=== PATIENT | female | born 1990 | race Caucasian/White ===

== ENCOUNTER 2016-04-05 10:11 | Emergency (ER) | payer MEDICARE, MEDICAID ==
[2016-04-05 10:34] VITALS: BP 113/72; TEMP 98; BMI 23.1
[2016-04-05] MEDS ORDERED: KETOROLAC TROMETHAMINE 10 MG TAB PO ONE (12:03)
--- NOTE | 2016-04-05 12:06 | EDPRACDOC ---
- General Information Chief Complaint: Rib Pain Stated Complaint: CHEST WALL PAIN Time Seen by Provider: 04/05/16 12:03 Information Source: Patient Mode of Arrival: Car Home Medications: Home Medications Azithromycin [Zithromax] 0 mg PO DAILY #6 tablet 04/05/16 Meloxicam 15 mg PO DAILY #20 tab 04/05/16 Oxycodone Immediate Release [Oxycodone Immediate Release (OxyIR)] 5 mg PO Q4H PRN #7 tab 04/05/16 Prednisone [Sterapred Ds] 10 mg PO DIR #21 pack 04/05/16 Allergies/Adverse Reactions: Allergies Allergy/AdvReac Type Severity Reaction Status Date / Time acetaminophen [From Tylenol] Allergy Rash-Genera Verified 04/05/16 10:31 lized - History of Present Illness Onset: 3 days HPI: PT STATES SHE FELL 3 DAYS AGO AND HAS BRUISE TO RT ARM AND C/O LEFT LATERAL CHESTWALL PAIN THAT IS WORSE IWHT TAKING BREATH MOVEMENT AND COUGHING. NO FEVERS OR CHILLS NO SOB AT THIS TIME. Chest Wall Injury Location: Reports: Lateral (LT) Context: Reports: Fall Tetanus Up To Date?: No Pain Quality: Reports: Sharp, Aching Pain Severity: Reports: Mild, Moderate Pain Worsens With: Reports: Coughing, Breathing, Movement, Position Shortness of Breath: None Associated Signs and Symptoms: Reports: None ED Past Medical History - History Reviewed Yes Nurses notes reviewed and agree except as marked Travel Outside of [place] in the Last 3 Months?: No No Past Medical History: Yes Patient has no past medical history - Social Medical History Smoking Status: Heavy tobacco smoker (5 or more cigarettes/day or daily pipe/ cigar) ETOH: None Substance Abuse: None Lives With: Other Lives In: Home EDM Review of Systems - Review of Systems ROS Negative Except as Marked: Yes All systems reviewed and were negative except as marked Constitutional: No Symptoms Reported. negative: Fever, Chills, Weakness, Fatigue, Loss of Appetite Eyes: No Symptoms Reported. negative: Redness, Blurred Vision, Double Vision, Discharge, Pain, Light Sensitive, Photophobia Ears: No Symptoms Reported. negative: Pain, Hearing Loss, Drainage, Ear Pulling Throat: No Symptoms Reported. negative: Pain, Swelling Nose: No Symptoms Reported. negative: Congestion, Bleeding, Discharge, Injection, Swelling, Deformity, Ecchymosis, Tender, Abrasion, Laceration Mouth: No Symptoms Reported. negative: Pain, Drooling Respiratory: Cough. negative: Barky Cough, Brassy Cough, Hemoptysis, Shortness of Breath, Wheezing Cardiovascular: No Symptoms Reported. negative: Chest Pain, Cyanosis, Edema, Orthopnea, Palpitations, PND, Syncope, Skin Mottling Gastrointestinal: No Symptoms Reported. negative: Pain, Constipation, Nausea, Vomiting, Diarrhea, Melena, Formula Intolerance Genitourinary: No Symptoms Reported. negative: Dysuria, Hematuria, Frequency, Discharge, Bleeding, Testicular Pain, Neurological: No Symptoms Reported. negative: Headache, Dizziness, Seizure, Numbness, Weakness, Speech Difficulty, Gait Difficulty Musculoskeletal: Chestwall (LEFT). negative: Arm, Ankle, Back, Elbow, Forearm, Femur, Foot, Hand, Hip, Knee, Leg, Neck, Pelvis, Ribs, Shoulder, Wrist Integumentary: No Symptoms Reported. negative: Itching, Rash, Bruising, Wound Allergic/Immunologic: No Symptoms Reported. negative: Hives, Itching Hematologic: No Symptoms Reported. negative: Lymphadenopathy, Easy Bruising, Easy Bleeding Endocrine: No Symptoms Reported. negative: Weight Gain, Weight Loss Psychiatric: No Symptoms Reported. negative: Anxiety, Depression, Hallucinations, Insomnia, Suicidal - Physical Exam Constitutional: Alert (Awake), No apparent distress Oriented to: Time, Person, Place Last recorded Vital Signs: Last Vital Signs Temp 98.0 F 04/05/16 10:32 Pulse 104 04/05/16 10:32 Resp 18 04/05/16 10:32 BP 113/72 04/05/16 10:32 Pulse Ox 95 04/05/16 10:32 Oxygen Pulse Oxygen Saturation 95 O2 Device Room Air Oxygen Flow Rate Fraction of Inspired Oxygen ( FIO2) - HEENT Head: Normal ( normocephalic) Eye Exam: Normal (PERRL, EOMI, Sclera white) Oropharynx: Normal (Pharynx:Moist without exudate,Gums-no swelling) Tympanic Membrane: Normal ENT EAC: Normal TMJ: Normal Nose: No Symptoms Reported (septum midline) Neck: Normal (FROM, trachea at midline) - Respiratory/Cardiovascular Respiratory: Other (COARSE BREATH SOUNDS) Cardiovascular: Normal (RRR without murmur, gallop or rub) - GI Auscultation: Normal (NABS) Palpation: Normal (Soft,No rebound or guarding, non distended) Tenderness: Non tender Courtney's Sign: Negative - Musculoskeletal Back: Normal (Non-Tender) Extremities: Normal (Normal tone, Pulses 2+ No cyanosis or edema, FROM) - Integumentary Skin: Normal, Warm, Dry Lymphatics: Normal (no adenopathy) - Neurologic Memory Impaired: Normal Motor Function: Normal (Normal tone, Pulses 2+ No cyanosis or edema, FROM) Cranial Nerve: Normal (CN II-X11 intact sensation, strength 5/5) Cerebellar: Normal Mood Description: Normal Perception: Normal ED Chest Wall Pain Exam - Chest Wall Pain Chest: Tender (TO PALPATION) - Differential Diagnosis Chest Wall Contusion, Rib Fracture, Other (INTERCOSTAL MUSCLE STRAIN, COSTOCHONDRITIS) - Diagnostic Imaging RBS WITH CXR Image interpreted by: Radiologist IMPRESSION: No active disease in the chest. No left rib fracture identified. Should the patient's symptoms persist or worsen, repeat radiographs of the ribs in 10 - 14 days maybe of use to detect subtle nondisplaced rib fractures (which are commonly occult on initial imaging). Decision Time to Discharge: 13:00 - Departure Disposition: Home Condition: Stable Final Diagnosis: Acute bronchitis Chest wall muscle strain Qualifiers: Encounter type: initial encounter Qualified Code(s): S29.011A - Strain of muscle and tendon of front wall of thorax, initial encounter Instructions: Acute Bronchitis (ED), Chest Wall Pain Education/Counseling Given To: Patient Education/Counseling Given Regarding: Diagnosis, Treatment, Prognosis, Follow Up Referrals: Destiny Cazares MD [Primary Care Provider] - One Week Prescriptions: Azithromycin [Zithromax] 0 mg PO DAILY #6 tablet Meloxicam 15 mg PO DAILY #20 tab Oxycodone Immediate Release [Oxycodone Immediate Release (OxyIR)] 5 mg PO Q4H PRN #7 tab PRN Reason: Pain Prednisone [Sterapred Ds] 10 mg PO DIR #21 pack Additional Instructions: STOP SMOKING, INCREASE PO FLUIDS. RETURN FOR WORSE OR DIFFERENT SYMPTOMS. TAKE ONE DEEP BREATH EVERY 15MINUTES TO PREVENT PNEUMONIA.
[2016-04-05 12:12] VITALS: PULSE 78
--- NOTE | 2016-04-05 12:46 | DIRPT ---
CLINICAL DATA: Fall with left chest pain. EXAM: LEFT RIBS AND CHEST - 3+ VIEW COMPARISON: None. FINDINGS: Normal heart size. Normal mediastinal contour. No pneumothorax. No pleural effusion. Clear lungs, with no focal lung consolidation and no pulmonary edema. The area of symptomatic concern as indicated by the patient was denoted with a metallic skin BB by the technologist in the anterior lower left chest wall. No fracture or suspicious focal osseous lesion is seen in the left ribs. IMPRESSION: No active disease in the chest. No left rib fracture identified. Should the patient's symptoms persist or worsen, repeat radiographs of the ribs in 10 - 14 days maybe of use to detect subtle nondisplaced rib fractures (which are commonly occult on initial imaging). Electronically Signed By: Edmundo Dunlap M.D. On: 04/05/2016 12:44
== END 2016-04-05 13:33 | disposition home or self-care (01) ==
LOC: ED 10:11 → EDMC 13:33
DX: J20.9 Acute bronchitis, unspecified (principal); S29.011A Strain of muscle and tendon of front wall of thorax, initial encounter; W19.XXXA Unspecified fall, initial encounter; F17.200 Nicotine dependence, unspecified, uncomplicated
CPT/HCPCS: 71101; 99283; A9270; J3490